=== PATIENT | female | born 1940 | race Two or more races ===

== ENCOUNTER 2023-06-10 19:29 | Inpatient (IN) | payer OTHER ==
[~2023-06-10] VITALS: Ht 167.6 cm; Wt 65.8 kg
[2023-06-10] MEDS ORDERED: SYNTHROID75 MCG PO (19:51)
[2023-06-10] MEDS ORDERED: LAMOTRIGINE200 MG PO (19:51)
[2023-06-10] MEDS ORDERED: BUPROPION XL450 MG PO (19:52)
[2023-06-10] MEDS ORDERED: AMLODIPINE-OLM1 EAC2 PO (19:52)
[2023-06-10] MEDS ORDERED: OLANZAPINE2.5 MG PO (19:53)
[2023-06-10] MEDS ORDERED: PRAVASTATIN SOD20 MG PO (19:53)
[2023-06-10] MEDS ORDERED: COZAAR25 MG PO (19:53)
[2023-06-10] MEDS ORDERED: RESTORIL30 M1 PO (19:53)
--- NOTE | 2023-06-10 19:53 | NUR ---
SE RECIBE FEMINA ALERTA Y ORIENTADA X3 EN AMBULANCIA EN COMPANIA DE CUIDAD[place]A.PTE REFIERE RETENCION URINARIA DESDE TIANA EN LA NOCHE. PTE TIENE PEG CON VENDAJE LIMPIO Y SECO. SE MIDEN S/V Y SE UBICA.
[2023-06-10] MEDS ORDERED: 0.9 % SODIUM CHLORIDE 500 ML IV ONE (20:15)
--- NOTE | 2023-06-10 20:39 | NUR ---
PTE ALERTA Y ORIENTADA X3, SE EDUCA SOBRE TX MEDICO LA CUAL REFIERE ACEPTAR. SE COLECTAN MUESTRAS DE LAB Y SE CANALIZA PTE BAJO MEDIDAS ASEPTICAS. SE INSERTA LOCKWOOD A GRAVEDAD, PATENTEE. SE COLECTA MUESTRAS DE U/A Y U/C
[2023-06-10 20:41] LABS: HEMATOCRIT 34.7 % (36.0-45.00); HEMOGLOBIN 11.5 g/dL (12.0-15.00); MEAN CELL VOLUME 85.5 fL (80.00-100.00); MEAN CORPUSCULAR HEMOGLOBIN 28.2 pg (27.00-32.0); PLATELET COUNT 244 K/uL (150-450); RED BLOOD COUNT 4.06 M/uL (4.00-6.00); RED CELL DISTRIBUTION WIDTH 14.8 % (11.5-14.5)
[2023-06-10 21:55] LABS: URINE APPEARANCE Cloudy; URINE BILIRRUBIN Negative (NEGATIVE); URINE BLOOD Negative; URINE COLOR Yellow; URINE GLUCOSE Negative (NEGATIVE); URINE LEUKOCYTE Large; URINE NITRATE Negative; URINE PROTEIN Trace (NEGATIVE)
[2023-06-10 22:03] LABS: URINE BACTERIA 1124.9 uL (0.0-1933); URINE RBC 14.2 uL (0.0-20.8); URINE WBC 1023.3 uL (0.0-23.2)
[2023-06-10 22:14] LABS: CALCIUM 10.3 mg/dL (8.5-10.1); CREATININE SERUM 0.82 mg/dL (0.55-1.02); GFR 66.26; POTASSIUM 4.28 mEq/L (3.5-5.1)
[2023-06-10] MEDS ORDERED: PIPERACILLIN/TAZOBACTAM SODIUM 3.375 GM VIAL IV ONE (22:45)
[2023-06-10] MEDS ORDERED: 0.9 % SODIUM CHLORIDE 1,000 ML IV SCH (23:30)
[2023-06-10] MEDS ORDERED: ONDANSETRON HCL 4 MG in 0.9 % SODIUM CHLORIDE 50 ML IV PRN (23:30)
[2023-06-10] MEDS ORDERED: ACETAMINOPHEN 500 MG GEL..CAP PO PRN (23:30)
[2023-06-10] MEDS ORDERED: hydrALAZINE HCL 20 MG VIAL IV PRN (23:30)
[2023-06-10] MEDS ORDERED: MEPERIDINE HCL/PF 25 MG/ML VIAL IM PRN (23:45)
[2023-06-11] MEDS ORDERED: PIPERACILLIN/TAZOBACTAM SODIUM 3.375 GM in 0.9 % SODIUM CHLORIDE 100 ML IV SCH
[2023-06-11 05:33] LABS: ALBUMIN 3.2 gm/dL (3.4-5.0); BILIRUBIN TOTAL 0.9 mg/dL (0.3-1.2); BILIRUBIN,CONJUGATED 0.23 mg/dL (0.0-0.2); BILIRUBIN,UNCONJUGATED 0.67 mg/dL (0.0-0.6); CALCIUM 9.5 mg/dL (8.5-10.1); CREATININE SERUM 0.73 mg/dL (0.55-1.02); GFR 75.77; GLOBULINA 4.2 G/DL (2.4-3.5); POTASSIUM 4.33 mEq/L (3.5-5.1); TOTAL PROTEIN 7.4 gm/dL (6.4-8.2)
[2023-06-11 05:59] LABS: C-REACTIVE PROTEIN 1.79 MG/DL (0.00-0.29)
[2023-06-11] MEDS ORDERED: LEVOTHYROXINE SODIUM 75 MCG TABLET PO SCH (06:00)
[2023-06-11 06:15] LABS: HEMATOCRIT 33.7 % (36.0-45.00); HEMOGLOBIN 11.2 g/dL (12.0-15.00); MEAN CELL VOLUME 85.6 fL (80.00-100.00); MEAN CORPUSCULAR HEMOGLOBIN 28.5 pg (27.00-32.0); MEAN CORPUSCULAR HGB CONC 33.3 g/dl (32.0-36.0); PLATELET COUNT 210 K/uL (150-450); RED BLOOD COUNT 3.94 M/uL (4.00-6.00); RED CELL DISTRIBUTION WIDTH 14.4 % (11.5-14.5)
[2023-06-11 06:25] LABS: ERYTHROCYTE SEDIMENTATION RATE 84 mm/hr
[2023-06-11 06:36] LABS: INR 1.09; PROTHROMBIN TIME 11.4 SECONDS (9.0-11.5)
[2023-06-11] MEDS ORDERED: OLMESARTAN PO SCH (09:00)
[2023-06-11] MEDS ORDERED: AMLODIPINE PO SCH (09:00)
[2023-06-11] MEDS ORDERED: ENOXAPARIN SODIUM 40 MG/0.4 ML SYRINGE SUBCUTANEO SCH (09:00)
[2023-06-11] MEDS ORDERED: ATORVASTATIN CALCIUM 20 MG TABLET PO SCH (09:00)
[2023-06-11] MEDS ORDERED: LOSARTAN POTASSIUM 25 MG TABLET PO SCH (09:00)
[2023-06-11] MEDS ORDERED: FAMOTIDINE/PF 20 MG in 0.9 % SODIUM CHLORIDE 8 ML IV PUSH SCH (09:00)
[2023-06-11] MEDS ORDERED: AMLODIPINE BESYLATE 5 MG TABLET PO SCH (09:00)
[2023-06-11] MEDS ORDERED: BUPROPION HCL 150 MG TABLET.SA PO SCH (09:00)
[2023-06-11] MEDS ORDERED: PATIENTS OWN MEDICATION (MEDICAMENTO EN PISO) PO SCH ×2 (09:00)
[2023-06-11 09:25] LABS: PH,URINE 7.5 (5.0-8.0); URINE APPEARANCE Clear; URINE BILIRRUBIN Negative (NEGATIVE); URINE BLOOD Small; URINE COLOR Yellow; URINE GLUCOSE Negative (NEGATIVE); URINE LEUKOCYTE Large; URINE NITRATE Negative; URINE PROTEIN 30 (NEGATIVE); URINE UROBILINOGEN 0.2 E.U./dl
[2023-06-11 09:28] LABS: URINE BACTERIA 575.7 uL (0.0-1933); URINE RBC 50.8 uL (0.0-20.8); URINE WBC 869.8 uL (0.0-23.2)
[2023-06-11 10:01] LABS: URINE EPITHELIAL CELLS 0.9 uL (0.0-38.8)
[2023-06-11] MEDS ORDERED: TEMAZEPAM 15 MG CAPSULE PO SCH (21:00)
[2023-06-13] MEDS ORDERED: LACTULOSE 20 G/30 ML BLIST.PACK PO ONE (09:21)
[2023-06-13] MEDS ORDERED: NA PHOS,M-B/NA PHOS,DI-BA 1 BOTTLE ENEMA RECTAL ONE (09:22)
[2023-06-13] MEDS ORDERED: MINERAL OIL 30 ML BLIST.PACK PO ONE (09:22)
[2023-06-13] MEDS ORDERED: MAGNESIUM HYDROXIDE 30 ML BLIST.PACK PO ONE (09:23)
[2023-06-13] MEDS ORDERED: MEROPENEM 500 MG/VIAL VIAL IV SCH (12:00)
[2023-06-15] MEDS ORDERED: LOSARTAN POTASS25 MG PO (07:22)
[2023-06-15] MEDS ORDERED: LIPITOR20 MG PO (07:22)
[2023-06-15] MEDS ORDERED: AMLODIPINE BESYL5 MG PO (07:22)
[2023-06-15] MEDS ORDERED: LEVOTHYROXINE75 MCG PO (07:23)
[2023-06-15] MEDS ORDERED: ERTAPENEM1 GM IJ (07:25)
== END 2023-06-15 14:18 | disposition home or self-care (01) | DRG 690 ==
LOC: ER 19:29 → MEDI 23:39
PROVIDERS: General Practice; Nurse Practitioner Family; ADMIT Internal Medicine; ATTEND Internal Medicine
PROC: BW21ZZZ Computerized Tomography (CT Scan) of Abdomen and Pelvis (ICD-10-PCS; principal; 2023-06-10)
DX: N39.0 Urinary tract infection, site not specified (principal); R33.9 Retention of urine, unspecified; I10 Essential (primary) hypertension; K52.9 Noninfective gastroenteritis and colitis, unspecified; K56.41 Fecal impaction; B96.20 Unspecified Escherichia coli [E. coli] as the cause of diseases classified elsewhere; B96.1 Klebsiella pneumoniae [K. pneumoniae] as the cause of diseases classified elsewhere; G30.9 Alzheimer's disease, unspecified